=== PATIENT | male | born 1995 | race Hispanic/Latino ===

== ENCOUNTER 2017-03-10 19:06 | Emergency (ER) | payer MEDICAID ==
[2017-03-10 19:14] VITALS: PULSE 78; RESP 16; TEMP 98; O2SAT 98
--- NOTE | 2017-03-10 20:03 | ED PDOC ---
HPI: General Adult Time Seen by Provider: 03/10/17 19:46 Chief Complaint (Nursing): Medical Clearance Chief Complaint (Provider): Medical Evaluation History Per: Patient History/Exam Limitations: no limitations Additional Complaint(s): Abimael Car is a 21 y/o male presenting to the ER on 03/10/2017 for a medical evaluation. Patient reports he failed a drug test today for PCP at his [facility] earlier today. However, he notes he was also drug tested yesterday and found that his test was negative, thus prompting him to seek medical attention. Patient states he has not used any drugs or alcohol in over a year. He admits to prior history of heroin and cocaine abuse. He offers no other medical complaints at this time. Past Medical History Reviewed: Historical Data, Nursing Documentation, Vital Signs Vital Signs: Last Vital Signs Temp 98.0 F 03/10/17 19:09 Pulse 78 03/10/17 19:09 Resp 16 03/10/17 19:09 BP Pulse Ox 98 03/10/17 21:01 - Medical History PMH: Anxiety, Asthma Denies: Diabetes, Hepatitis, HIV, HTN, Chronic Kidney Disease, Seizures, Sexually Transmitted Disease - Surgical History Surgical History: No Surg Hx - Family History Family History: States: Unknown Family Hx - Social History Current smoker - smoking cessation education provided: No Alcohol: None Drugs: Other (PCP) - Immunization History Hx Tetanus Toxoid Vaccination: Yes Hx Influenza Vaccination: No Hx Pneumococcal Vaccination: No - Home Medications Home Medications: Ambulatory Orders Medication Instructions Recorded Cyclobenzaprine [Cyclobenzaprine 10 mg PO Q8 #15 tab 11/18/15 HCl] Naproxen [Naprosyn] 500 mg PO BID #20 tablet 11/18/15 - Allergies Allergies/Adverse Reactions: Allergies Allergy/AdvReac Type Severity Reaction Status Date / Time Penicillins Allergy RASH Verified 11/18/15 14:32 Review of Systems ROS Statement: Except As Marked, All Systems Reviewed And Found Negative Constitutional: Negative for: Fever Neurological: Negative for: Weakness, Numbness, Altered Mental Status Physical Exam - Reviewed Nursing Documentation Reviewed: Yes Vital Signs Reviewed: Yes - Physical Exam Appears: Positive for: Non-toxic, No Acute Distress Head Exam: Positive for: ATRAUMATIC, NORMOCEPHALIC Skin: Positive for: Normal Color. Negative for: Rash Eye Exam: Positive for: Normal appearance Neck: Positive for: Normal Cardiovascular/Chest: Positive for: Regular Rate, Rhythm. Negative for: Murmur Respiratory: Positive for: Normal Breath Sounds. Negative for: Respiratory Distress Extremity: Positive for: Normal ROM, Other (old track olmedo on arms bilat). Negative for: Deformity, Swelling Neurologic/Psych: Positive for: Alert, Oriented. Negative for: Motor/Sensory Deficits - ECG O2 Sat by Pulse Oximetry: 98 Medical Decision Making Medical Decision Makin:46 Initial Impression- Medical Evaluation Initial Plan- * Urine Drug Screen Patient provided with copy of results at his request. Adivsed to f/u with PMD, or clinic, and return to the ED for any worsening or change in symptoms. Documented by Aimee Doyle, acting as a scribe for Thania Chowdhury PA-C All medical record entries made by the Scribe were at my direction and personally dictated by me. I have reviewed the chart and agree that the record accurately reflects my personal performance of the history, physical exam, medical decision making, and the department course for this patient. I have also personally directed, reviewed, and agree with the discharge instructions and disposition. Disposition - Clinical Impression Clinical Impression: Encounter for blood-drug test - Patient ED Disposition Is Patient to be Admitted: No Counseled Patient/Family Regarding: Studies Performed, Diagnosis, Need For Followup - Disposition Disposition: Routine/Home Disposition Time: 21:18 Condition: STABLE Additional Instructions: Patient advised to follow up with his customs patrol officer for final results of his drug screening. Continue to refrain from drug use. Instructions: Polysubstance Abuse (ED) Forms: [facility] ([place]ish)
== END 2017-03-10 21:18 | disposition home or self-care (01) ==
LOC: H.ER 19:06
DX: Z02.83 Encounter for blood-alcohol and blood-drug test (principal); Z88.0 Allergy status to penicillin